=== PATIENT | male | born 1950 | race Caucasian/White ===

== ENCOUNTER 2024-04-14 15:43 | Inpatient (IN) ==
--- NOTE | 2024-04-14 16:28 | Emergency Department Note ---
Impression & Plan Acute pyelonephritis, NAM (acute kidney injury), Fever postop ED Provider Note NAME: DARIA HYMAN AGE: 74 SEX: M : 1950 ARRIVES VIA: Walk-In INFORMANT: Patient, ED PROVIDER(S): Arvind Cheung DO CHIEF COMPLAINT: Fever HPI: The patient is a 74-year-old male who presented to the emergency department for fever. He is status post prostate biopsy which was transrectal as well as a bladder cystoscopy which was positive for bladder cancer. The patient is on Cipro. He did take Cipro this morning. He is also been taking ibuprofen for fever. He took ibuprofen at 2 PM. The patient called his primary urologist and was told to come the emergency department. He noticed a fever as high as 101.5 degrees. He denies having any cough. He denies having any nausea or vomiting. ROS: See above HPI for pertinent positives & negatives. A total of 10 systems reviewed and were otherwise negative. PAST MEDICAL HISTORY: See Below PAST SURGICAL HISTORY: See Below FAMILY HISTORY: See Below SOCIAL HISTORY: See Below HOME MEDICATIONS: See Below ALLERGIES: See Below VITALS: See Below PHYSICAL EXAMINATION: GENERAL: Patient is awake alert in no acute distress patient is resting comfortably and showing no signs of anxiety EYES: The conjunctivae are clear. The pupils are round and reactive. EARS, NOSE, MOUTH AND THROAT: The nose is without any evidence of any deformity. NECK: The neck is nontender and supple. RESPIRATORY: Normal respiratory effort is noted there is no evidence of wheezing rhonchi or rales CARDIOVASCULAR: Tachycardic and regular heart sounds were noted to auscultation. There is no definite murmur. GASTROINTESTINAL: The abdomen is soft. Abdomen is nontender. PELVIS: The Pelvis is stable. No tenderness to palpation is noted. BACK: No midline tenderness or or step-off noted range of motion in flexion extension as well as rotation no signs of muscle spasm noted MUSCULOSKELETAL/EXTREMITIES: There is no evidence of gross deformity full range of motion is noted in the hips and shoulders. SKIN: There is no obvious evidence of any rash. There are no petechiae, pallor or cyanosis noted. NEUROLOGIC: Patient is awake alert and oriented x3 MEDICAL DECISION MAKING: The patient is a 74-year-old male who presented to the emergency department for an evaluation of fever. The patient is status post transrectal biopsy of his prostate but also a cystoscopy for bladder mass. The patient initially was just tachycardic but he started having signs of sepsis with low blood pressure and tachycardia. Patient was treated in the emergency department with IV fluids as well as IV antibiotics. I discussed the patient's laboratory and radiographic studies with him. I discussed his condition with the on-call [facility] hospitalist. I also discussed his case with his primary urologist. The patient is felt to be a better candidate for inpatient management. Triage Nursing notes reviewed. Prior medical records reviewed Vital Signs: reviewed and remarkable for hypotension tachycardia and tachypnea. Differential diagnosis: Viral syndrome, otitis, pharyngitis, pneumonia, influenza, meningitis, urinary tract infection, sepsis, bacteremia, as well as other pathologies. ER treatment provided: See below Diagnostics interpreted by me: ECG: EKG was obtained in the emergency department. My interpretation is sinus tachycardia [address] and T wave abnormalities were noted. Low voltage was noted throughout. There is no ectopy. This was compared to a tracing from March 25, 2024. No changes were noted. Cardiac Monitoring: An order was placed for continuous cardiac monitoring. The monitor shows a rate of 109 bpm with sinus tachycardia. Laboratory studies: As stated above and show below. Imaging studies: See below. Radiographic imaging was reviewed by myself Consultation(s): I discussed this case with Dr. Red who is on-call for the [facility] group. I discussed this case with Dr. Hartmann who is the patient's primary urologist. ED COURSE: Procedures: none Critical Care: I have personally spent greater than 60 minutes of critical care time in the direct management of this patient. This includes bedside care, interpretation of diagnostic studies, and testing, discussion with consultants, patient, and family members, and other required patient management activities. This 60 minutes is in excess of all separately billable procedures. Past Med/Surg History Problem List (Updated 04/14/24 @ 18:06 by Arvind Cheung DO) Fever postop (Acute) NAM (acute kidney injury) (Acute) Acute pyelonephritis (Acute) Complicated UTI (urinary tract infection) Sepsis Encounter for pre-operative examination Medical History Idiopathic polyneuropathy Feet Prostate cancer 10/2019 [place] 6, monitored through PSA Bladder mass Osteoarthritis GERD (gastroesophageal reflux disease) Anxiety Glaucoma Migraine Hypertension Hyperlipidemia Hx of sleep apnea "Resolved" after UPPP Surgical History History of anesthesia reaction Post-op difficulty urinating x 1 episode History of esophagogastroduodenoscopy (EGD) History of revision of total shoulder arthroplasty Right History of total shoulder replacement R/L S/P revision of total knee Left History of total knee replacement R/L History of total hip arthroplasty Left H/O prostate biopsy History of colonoscopy History of tooth extraction History of uvulopalatopharyngoplasty + tonsillectomy Family History Sister Family history of diabetes mellitus Father Family history of diabetes mellitus Other No family history of adverse response to anesthesia Social History Smoking Status: Never smoker Second Hand Exposure: No; Do You Dip or Chew Tobacco: No; Hx Alcohol Use: Yes (remote hx of drinking) Alcohol type: beer Hx Substance Use: No Preferred Language: Austrian Communication Ability: Effective Retirement Plan Counselor Required: No Beliefs That Will Affect Care: None Current Living Situation: Spouse Feels Safe at Home: Yes Assistive Devices: Glasses, Hearing Aid - Bilateral and Other Allergies Allergies Allergy/AdvReac Type Severity Reaction Status Date / Time No Known Allergies Allergy Verified 04/13/24 11:51 Home Meds Home Medications Medication Instructions Recorded Confirmed brimonidine 0.2 % eye drops 1 drp ophthalmic (eye) BID 01/11/22 04/13/24 clonazepam 0.5 mg tablet 0.5 mg PO TID 01/11/22 04/13/24 famotidine 40 mg tablet 40 mg PO QAM 01/11/22 04/13/24 latanoprost 0.005 % eye drops 1 drp ophthalmic (eye) HS 01/11/22 04/13/24 simvastatin 20 mg tablet 10 mg PO QAM 01/11/22 04/13/24 losartan 100 1 tab PO QAM 03/30/24 04/13/24 mg-hydrochlorothiazide 25 mg tablet Previous Rx's Medication Instructions Recorded ciprofloxacin HCl 500 mg tablet 500 mg PO BID #6 tabs 04/13/24 (Cipro) Results & Data (ED) Vital Signs Vital Signs - 24 hr 04/14/24 15:59 04/14/24 16:24 04/14/24 17:00 Temperature 37.5 C 37.0 C Temperature Source Temporal Artery Scan Oral Pulse Rate 124 H 112 H Pulse Rate [Apical] Pulse Rate from SpO2 Sensor Respiratory Rate 18 21 Respiratory Effort / Characteristics Non-Labored Spontaneous Respiratory Depth Normal Blood Pressure 100/55 L Blood Pressure [Left Arm] Blood Pressure Mean 70 Blood Pressure Mean [Left Arm] Pulse Oximetry 94 93 Oxygen Delivery Method Room Air Room Air Sepsis Recent Fever Within 48 Hours No Sepsis New/Unexplained Change in Mental Status No Sepsis Action Taken by Nursing No Action Required 04/14/24 17:00 04/14/24 17:07 04/14/24 17:21 Temperature Temperature Source Pulse Rate 112 H 108 H Pulse Rate [Apical] 110 H Pulse Rate from SpO2 Sensor 108 H Respiratory Rate 23 28 H Respiratory Effort / Characteristics Respiratory Depth Blood Pressure Blood Pressure [Left Arm] 86/58 L Blood Pressure Mean Blood Pressure Mean [Left Arm] 67 Pulse Oximetry 93 93 Oxygen Delivery Method Room Air Room Air Sepsis Recent Fever Within 48 Hours Sepsis New/Unexplained Change in Mental Status Sepsis Action Taken by Nursing 04/14/24 17:36 04/14/24 17:48 Temperature Temperature Source Pulse Rate 108 H 109 H Pulse Rate [Apical] Pulse Rate from SpO2 Sensor 108 H 109 H Respiratory Rate 26 H 32 H Respiratory Effort / Characteristics Respiratory Depth Blood Pressure Blood Pressure [Left Arm] Blood Pressure Mean Blood Pressure Mean [Left Arm] Pulse Oximetry 92 93 Oxygen Delivery Method Room Air Room Air Sepsis Recent Fever Within 48 Hours Sepsis New/Unexplained Change in Mental Status Sepsis Action Taken by Long-Term Medications Current Medication List: was personally reviewed by me Laboratory Data Attestation: I reviewed the patient's lab results. 04/14/24 16:35 04/14/24 16:35 Lab Results 04/14/24 04/14/24 Range/Units 16:25 16:35 WBC 8.59 (4.8-10.8) K/ul RBC 4.51 L (4.70-6.10) M/uL Hgb 13.2 L (14.0-18.0) g/dl Hct 39.4 L (42.0-52.0) % MCV 87.4 (80.0-100.0) fL MCH 29.3 (25.0-34.0) pg MCHC 33.5 (32.0-36.0) g/dL RDW Std Deviation 42.2 (36.4-46.3) fL RDW Coeff of [place] 13.2 (11.5-14.5) % Plt Count 169 (130-400) K/uL MPV 11.4 (9.4-12.4) fL Immature Gran % (Auto) 0.3 % Neut % (Auto) 97.8 % Lymph % (Auto) 0.9 % [place] % (Auto) 0.8 % Eos % (Auto) 0.0 % Baso % (Auto) 0.2 % Neut # (Auto) 8.39 H (1.40-6.50) K/uL Lymph # (Auto) 0.08 L (1.20-3.40) K/uL [place] # (Auto) 0.07 L (0.11-0.59) K/uL Eos # (Auto) 0.00 (0.00-0.50) K/uL Baso # (Auto) 0.02 (0.00-0.20) K/uL Immature Gran # (Auto) 0.03 (0.01-0.20) K/uL PT Cancelled INR Cancelled APTT Cancelled PTT Ratio Cancelled Sodium 133 L (136-145) mmol/L Potassium 3.4 L (3.5-5.1) mmol/L Chloride 97 L (98-107) mmol/L Carbon Dioxide 24 (21-32) mmol/L Anion Gap 12 H (3-11) BUN 38 H (6-23) mg/dl Creatinine 2.54 H (0.6-1.4) mg/dl Est Cr Clr Drug Dosing 29.4 ml/min Est GFR ( Amer) 27.5 ml/min Est GFR (Non-Af Amer) 23.7 ml/min BUN/Creatinine Ratio 15.0 (10-20) Glucose 141 H (70-99(Fasting)) mg/dl Lactate 3.9 H* (0.4-2.0) mmol/L Calcium 9.3 (8.6-10.3) mg/dl Magnesium 1.5 L (1.7-2.4) mg/dl Total Bilirubin 1.4 H (0.2-1.0) mg/dl Direct Bilirubin 0.4 H (0-0.2) mg/dl AST 31 (13-39) U/L ALT 26 (7-52) U/L Alkaline Phosphatase 58 (34-104) U/L Troponin I High Sens 12.3 (0-20) pg/ml Total Protein 6.7 (6.0-8.3) gm/dl Albumin 4.1 (3.4-5.0) gm/dl Procalcitonin 8.77 H (0-0.5) ng/ml Urine Color [place] Urine Appearance Turbid A (Clear) Urine pH 5.0 (4.5-7.5) Ur Specific [place] 1.019 (1.000-1.030) Urine Protein 3+ H (Negative) Urine Glucose (UA) Negative (Negative) Urine Ketones Trace H (Negative) Urine Blood 3+ H (Negative) Urine Nitrite Negative (Negative) Urine Bilirubin Negative (Negative) Urine Urobilinogen Negative (Negative) Ur Leukocyte Esterase 2+ H (Negative) Urine WBC (Auto) >50 H (0-5) /hpf Urine RBC (Auto) >20 H (0-2) /hpf U Hyaline Cast (Auto) 6-10 H (0-2) /lpf U Epithel Cells (Auto) 6-10 H (0-2) /hpf Urine Bacteria (Auto) None Seen (None Seen) Administered Medications Discontinued Medications Sodium Chloride (Nss) 1,000 mls @ 999 mls/hr IV .Q1H1M ONE Stop: 04/14/24 17:21 Last Infusion: 04/14/24 17:38 Dose: Infused Documented By: Admin: 04/14/24 16:37 Dose: 999 mls/hr Documented By: SMITA Sodium Chloride (Nss) 1,000 mls @ 999 mls/hr IV .Q1H1M ONE Stop: 04/14/24 18:02 Last Admin: 04/14/24 17:18 Dose: 999 mls/hr Documented By: SMITA Piperacillin Sod/Tazobactam Sod (Zosyn) 4.5 gm in 100 mls @ 200 mls/hr IV NOW ONE Stop: 04/14/24 17:32 Last Infusion: 04/14/24 17:43 Dose: Infused Documented By: Admin: 04/14/24 17:13 Dose: 200 mls/hr Documented By: SMITA Imaging Data Attestation: I personally reviewed and interpreted this imaging study as follows: My Impression: 1 view chest x-ray was obtained in the emergency department. My interpretation is no free air or definite infiltrate, final report below. CT of the abdomen and pelvis was obtained in the emergency department. My interpretation is no free air or signs of bowel obstruction, final report pending Radiologist's Impression: Chest X-Ray 04/14/24 16:21 XR chest 1V portable CLINICAL HISTORY: Sepsis TECHNIQUE: Single frontal radiograph of the chest was obtained. Comparison: Comparison is made to chest radiograph 03/25/2024 FINDINGS: Bilateral shoulder arthroplasties are seen. Cardiomegaly is noted. The lungs are clear. No evidence of pleural effusion or pneumothorax. IMPRESSION: No acute chest disease. ACT 112: Negative or not required by law. Electronically signed by: Matt José M.D. 04/14/2024 5:03 PM Discharge Plan Visit Data Chief Complaint: Fever Stated Complaint: FEVER, POST SURG ED Provider: Arvind Cheung Discharge Problem: Acute pyelonephritis, NAM (acute kidney injury), Fever postop Patient Disposition: Being Evaluated by Hospitalist Forms Stand Alone Forms: My [facility] Prescriptions Prescriptions: No Action famotidine 40 mg Tablet 40 mg PO QAM clonazepam 0.5 mg Tablet 0.5 mg PO TID simvastatin 20 mg Tablet 10 mg PO QAM latanoprost 0.005 % Drops 1 drp OPHTHALMIC (EYE) HS brimonidine 0.2 % Drops 1 drp OPHTHALMIC (EYE) BID losartan-hydrochlorothiazide 100-25 mg Tablet 1 tab PO QAM ciprofloxacin HCl [Cipro] 500 mg tablet 500 mg PO BID Qty: 6 0RF Referrals Referrals: Joanna Woods M.D. [Primary Care Provider] -
[2024-04-14] MEDS: SODIUM CHLORIDE 0.9% 1,000 ML IV ONE ×2 (16:37→17:18)
--- NOTE | 2024-04-14 17:05 | XRay Report ---
XR chest 1V portable CLINICAL HISTORY: Sepsis TECHNIQUE: Single frontal radiograph of the chest was obtained. Comparison: Comparison is made to chest radiograph 03/25/2024 FINDINGS: Bilateral shoulder arthroplasties are seen. Cardiomegaly is noted. The lungs are clear. No evidence o f pleural effusion or pneumothorax. IMPRESSION: No acute chest disease. ACT 112: Negative or not required by law. Electronically signed by: Matt José M.D. 04/14/2024 5:03 PM
[2024-04-14 17:12] LABS: Hematocrit (blood only) 39.4 % (42.0-52.0); Hemoglobin 13.2 g/dl (14.0-18.0); Mean Corpuscular Hemoglobin 29.3 pg (25.0-34.0); Mean Corpuscular Hgb Conc 33.5 g/dL (32.0-36.0); Mean Corpuscular Volume 87.4 fL (80.0-100.0); Mean Platelet Volume 11.4 fL (9.4-12.4); Platelet Count 169 K/uL (130-400); RDW Coefficient of Variation 13.2 % (11.5-14.5); RDW Standard Deviation 42.2 fL (36.4-46.3); Red Blood Count 4.51 M/uL (4.70-6.10); White Blood Count 8.59 K/ul (4.8-10.8)
[2024-04-14] MEDS: PIPERACILLIN/TAZOBACTAM 4.5 GM/100 ML BAG IV ONE (17:13)
[2024-04-14 17:22] LABS: Appearance Urine Turbid (Clear); Bacteria Urine Automated None Seen (None Seen); Bilirubin Urine Negative (Negative); Blood Urine 3+ (Negative); Color Urine Orange; Glucose Urine UA Negative (Negative); Ketones Urine Trace (Negative); Leukocyte Esterase Urine 2+ (Negative); Nitrite Urine Negative (Negative); Protein Urine 3+ (Negative); RBC Urine Automated >20 /hpf (0-2); Specific Gravity Urine 1.019 (1.000-1.030); Urobilinogen Urine Negative (Negative); WBC Urine Automated >50 /hpf (0-5)
[2024-04-14 17:26] LABS: Albumin Level 4.1 gm/dl (3.4-5.0); Bilirubin Direct 0.4 mg/dl (0-0.2); Bilirubin,Total 1.4 mg/dl (0.2-1.0); Calcium 9.3 mg/dl (8.6-10.3); Creatinine Clr Calc Pharmacy 29.4 ml/min; Est GFR (African American) 27.5 ml/min; Est GFR (Non-African American) 23.7 ml/min; Magnesium 1.5 mg/dl (1.7-2.4); Potassium 3.4 mmol/L (3.5-5.1); Total Protein 6.7 gm/dl (6.0-8.3)
[2024-04-14 17:31] LABS: Troponin I High Sensitivity 12.3 pg/ml (0-20)
[2024-04-14 17:33] LABS: Basophils # (auto) 0.02 K/uL (0.00-0.20); Basophils % (auto) 0.2 %; Immature Granulocytes # (auto) 0.03 K/uL (0.01-0.20); Immature Granulocytes % (auto) 0.3 %; Lymphocytes # (auto) 0.08 K/uL (1.20-3.40); Lymphocytes % (auto) 0.9 %; Monocytes # (auto) 0.07 K/uL (0.11-0.59); Monocytes % (auto) 0.8 %; Neutrophils # (auto) 8.39 K/uL (1.40-6.50); Neutrophils % (auto) 97.8 %
--- NOTE | 2024-04-14 17:38 | History & Physical Report ---
Date of Service April 14, 2024 Assessment & Plan (1) Sepsis: Plan: Sepsis, suspect source post TURBT UA infected appearing, UCx pending Blood cultures pending Lactate elevated at 3.9. Hypotensive in the ER Sepsis 30cc/kg dosing 3126 cc, IBW 2100 cc. Has been ordered 2500cc of bolus in the ER to meet IBW goals. No prior history of CAD/heart failure. chest x- ray is without acute findings, no evidence of edema. Fluid resuscitation completed to ABW goal completed with 750cc LR Lactate repeat pending Procalcitonin 8.77. Continue Zosyn No history of resistant infections No history of chronic prednisone use/adrenal insufficiency EKG sinus tachycardia without territorial ST segment changes. No chest pain. High sensitive troponin is normal. - CT-A/P:1. Mild wall thickening of the anorectal junction with adjacent inflammatory stranding may represent a nonspecific proctitis. Findings should be correlated with colonoscopy. 2. No bowel obstruction or pneumoperitoneum. 3. Colonic diverticulosis. 4. 19 cm intramuscular lipoma of the left lateral abdominal wall. If stable can have GI consultation for inpatient versus outpatient colonoscopy depending on clinical progression (2) Complicated UTI (urinary tract infection): Plan: tx as noted (3) Prostate cancer: Plan: Bladder lesion/prostate cancer Bladder mass concerning for potential transitional cell carcinoma. Also has a history of prostate cancer [place] 3+3 in 2018, TURBT was performed for confirmation biopsy of prostate cancer at the same time of bladder tumor sampling Surgical specimen from biopsy remain pending (4) Bladder mass: Plan: as noted (5) Hypertension: Plan: Hypertension Losartan held for hypotension (6) NAM (acute kidney injury): Plan: NAM - baseline Cr ~1.5, acutely elevated at 2.54 with volume contraction and sepsis. Trend daily. No hyperkalemia or volume overload on admit. - IVFM as noted - Renally dose medications (7) Hematuria: Plan: MIld Acute Blood Loss anemia 2/2 bx bleeding - Hgb baseline ~15 --> 13.2 - Hematuria improving on reassessment, last void was clear. - No chest pain/syncope/presyncope - Type and screen ordered - Consent signed - No indication for acute transfusion at time of assessment Plan Chronic Stable Issues: - Chronic pain: Meloxicam temporarily held, hydrocodone 02384 temporarily converted to oxycodone while admitted. Hold for narcosis - GERD: No longer on Protonix however we will continue Pepcid prophylaxis/GERD prophylaxis while inpatient. - Hyperlipidemia: Continue statin DVT: SCDs Dispo: PCU CODE: FUll DIet: Regular History of Present Illness Primary Care Provider: Joanna Woods Los is a 74-year-old male with past medical history of prostate cancer and bladder tumor s/p TURBT and bladder tumor biopsy 04/13/2024, hypertension, GERD, hyperlipidemia who presents to the ER post prostate TURBT with fever of 101.5 and hypotension. Patient is recommended for admission for suspected sepsis of origin. While in the ER BP 100/55, repeat 86/58. There is no leukocytosis. Lactate is elevated at 3.9. Magnesium is low at 1.5. No transaminitis. UA is infected appearing. Patient had been on ciprofloxacin postprocedure. +Fever and shaking chills 10am today. Took 3x 200mg ibuprofen for fever which seemed to help. Took cipro last night, this morning, and this afternoon. 'horrendous' burning with urination since lat night, seems a little bit better than last night but still very bothersome. Hematuria last night this morning with lizeth blood however this seems that it may be improving as his last void was relatively clear without blood. Did pass some small clots last night none with his last Has some suprapubic pain otherwise denies abdominal pain No chest pain, chest pressure, shortness of breath, dyspnea Denies history of heart failure does not take aspirin/antiplatelet/anticoagulant agents Medical History: Reviewed Medications: Reviewed Surgical History: Reviewed Family history: Reviewed Allergies: Reviewed Social History: Reviewed Code Status: Full code Allergies Allergy/AdvReac Type Severity Reaction Status Date / Time No Known Allergies Allergy Verified 04/13/24 11:51 Home Medications Medication Instructions Recorded Confirmed Type brimonidine 0.2 % eye drops 1 drp ophthalmic (eye) BID 01/11/22 04/14/24 History clonazepam 0.5 mg tablet 0.5 mg PO TID 01/11/22 04/14/24 History famotidine 40 mg tablet 40 mg PO QAM 01/11/22 04/14/24 History latanoprost 0.005 % eye drops 1 drp ophthalmic (eye) HS 01/11/22 04/14/24 History simvastatin 20 mg tablet 10 mg PO QAM 01/11/22 04/14/24 History losartan 100 1 tab PO QAM 03/30/24 04/14/24 History mg-hydrochlorothiazide 25 mg tablet ciprofloxacin HCl 500 mg tablet 500 mg PO BID #6 tabs 04/13/24 04/14/24 Rx (Cipro) Past Med/Surg History Problem List (Updated 04/14/24 @ 18:44 by Donnell Gottlieb MD) Hematuria Fever postop (Acute) NAM (acute kidney injury) (Acute) Acute pyelonephritis (Acute) Complicated UTI (urinary tract infection) Sepsis Encounter for pre-operative examination Medical History Idiopathic polyneuropathy Feet Prostate cancer 10/2019 [place] 6, monitored through PSA Bladder mass Osteoarthritis GERD (gastroesophageal reflux disease) Anxiety Glaucoma Migraine Hypertension Hyperlipidemia Hx of sleep apnea "Resolved" after UPPP Surgical History History of anesthesia reaction Post-op difficulty urinating x 1 episode History of esophagogastroduodenoscopy (EGD) History of revision of total shoulder arthroplasty Right History of total shoulder replacement R/L S/P revision of total knee Left History of total knee replacement R/L History of total hip arthroplasty Left H/O prostate biopsy History of colonoscopy History of tooth extraction History of uvulopalatopharyngoplasty + tonsillectomy Family History Sister Family history of diabetes mellitus Father Family history of diabetes mellitus Other No family history of adverse response to anesthesia Social History Smoking Status: Never smoker Second Hand Exposure: No; Do You Dip or Chew Tobacco: No; Hx Alcohol Use: Yes (remote hx of drinking) Alcohol type: beer Hx Substance Use: No Preferred Language: Kyrgyz Communication Ability: Effective Washroom Operator Required: No Beliefs That Will Affect Care: None Current Living Situation: Spouse Feels Safe at Home: Yes Assistive Devices: Glasses, Hearing Aid - Bilateral and Other Physical Exam Physical Exam: General: A&Ox3. NAD. Cooperative. Appears nontoxic, pleasant, cooperative and conversational HEENT: Atraumatic, normocephalic. vision/hearing intact Pulm: CTAB A&P. -wheezes, -rales, -rhonchi. Symmetrical chest rise. No increased work of breathing. No respiratory distress. Cardiac: RRR, -mrg. Radial pulses intact and symmetrical. Abdominal:suprapubic ttp. No rebound/guarding. soft. BS present. Ext: warm, dry Results & Data Results & Data Vital Signs (Past 12 Hours) Vital Signs Temp Pulse Pulse Resp BP BP Pulse Ox 04/14/24 17:07 112 H 04/14/24 17:00 110 H 23 86/58 L 93 04/14/24 17:00 112 H 21 93 04/14/24 16:24 37.0 C 04/14/24 15:59 37.5 C 124 H 18 100/55 L 94 O2 Del Method 04/14/24 17:07 04/14/24 17:00 Room Air 04/14/24 17:00 Room Air 04/14/24 16:24 04/14/24 15:59 Room Air PG Care Time/CCT Total # of Minutes Spent Total Time Spent with Patient: Total time spent is greater than 50% in coordination of care (as documented) at patient's floor/unit and/or counseling patient: Coding Level of Care Code 74069 INT INP/OBS CARE 3/75MIN Diagnoses Sepsis A41.9 Complicated UTI (urinary tract infection) N39.0 Prostate cancer C61 Bladder mass N32.89 Hypertension I10 NAM (acute kidney injury) N17.9 Hematuria R31.9
--- NOTE | 2024-04-14 18:30 | CT Scan Report ---
ABDOMEN AND PELVIS CT WITHOUT CONTRAST CT DOSE: 1511.35 mGy.cm HISTORY: Acute generalized abdominal pain with fever fever TECHNIQUE: Multiaxial CT images of the abdomen and pelvis were performed without contrast. A dose lo wering technique was utilized adhering to the principles of ALARA. COMPARISON STUDY: None. FINDINGS: Gynecomastia. Left hemidiaphragmatic elevation. Moderate coronary artery calcifications. Mi ld left basilar subsegmental atelectasis. There is no free air. The unenhanced spleen, pancreas, gall bladder and adrenal glands are unremarkable. There are a few scattered hypodense foci throughout the liver suggestive of probable cysts. Left lateral abdominal wall intramuscular lipoma measures 13 x 5 x 19 cm. Nonspecific bilateral perin ephric stranding. There are a few cysts of the kidneys measuring up to 2.7 cm on the left. No renal o r ureteral calculi or hydronephrosis. Prostatomegaly. Urinary bladder wall thickening with partial di stention. There is a locule of intraluminal air within the bladder lumen. No abdominal aortic aneurys m. Mild nonspecific wall thickening of the anal rectal junction with adjacent inflammatory stranding, properly evaluated secondary to streak artifact from the left hip arthroplasty. Colonic diverticulos is. Normal appendix. Tiny fat filled umbilical hernia. No acute fracture. 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 IMPRESSION: 1. Mild wall thickening of the anorectal junction with adjacent inflammatory stranding may represent a nonspecific proctitis. Findings should be correlated with colonoscopy. 2. No bowel obstruction or pneumoperitoneum. 3. Colonic diverticulosis. 4. 19 cm intramuscular lipoma of the left lateral abdominal wall. ACT 112: Negative or not required by law. The above report was generated using voice recognition software. It may contain grammatical, syntax o r spelling errors. Electronically signed by: Patrick Lux M.D. 04/14/2024 6:28 PM
[2024-04-14 19:22] LABS: INR 1.1 (0.9-1.1); Partial Thromboplastin Time 26 Seconds (21-31); Prothrombin Time 11.9 Seconds (9.0-12.0)
[2024-04-14] MEDS: SODIUM CHLORIDE 0.9% 500 ML IV ONE (19:41)
[2024-04-14] MEDS: LACTATED RINGER'S 500 ML IV ONE (21:40)
[2024-04-14] MEDS: LACTATED RINGER'S 250 ML IV ONE (21:40)
[2024-04-14] MEDS: POTASSIUM CHLORIDE CRTAB 20 MEQ TABCR PO STA (21:40)
[2024-04-14] MEDS: ACETAMINOPHEN 325 MG TAB PO PRN (21:41)
[2024-04-14] MEDS: MAGNESIUM SULFATE / D5W 1 GM/100 ML BAG IV ONE (21:41)
[2024-04-14] MEDS: MAGNESIUM OXIDE 400 MG TAB PO SCH (21:45)
[2024-04-14] MEDS: LATANOPROST 0.005% OP SOLN 2.5 ML BTL OP SCH (21:45)
[2024-04-14] MEDS: PIPERACILLIN/TAZOBACTAM 4.5 GM in DEXTROSE 5% MINI-B 100 ML IV SCH (22:38)
[2024-04-14 22:54] LABS: Hematocrit (blood only) 38.1 % (42.0-52.0); Hemoglobin 12.7 g/dl (14.0-18.0)
[2024-04-15] MEDS: LACTATED RINGER'S 1,000 ML IV ONE (00:15)
[2024-04-15 03:47] LABS: A calco-baum cmplx NotReported Not Detected (NotDetected); Bact fragilis Not Reported Not Detected (NotDetected); Blood Culture Id Panel See PCR Comment (NotDetected); C auris Not Reported Not Detected (NotDetected); CTX-M Resistant Gene Not Detected (NotDetected); Calbicans Not Reported Not Detected (NotDetected); Candida glabrata Not Reported Not Detected (NotDetected); Candida krusei Not Reported Not Detected (NotDetected); Cneoformans/gatti Not Reported Not Detected (NotDetected); Cparapsilosis Not Reported Not Detected (NotDetected); E cloacae compx Not Reported Not Detected (NotDetected); Efaecalis Not Reported Not Detected (NotDetected); Efaecium Not Reported Not Detected (NotDetected); Enterobacterales DETECTED (NotDetected); Enterobacterales Not Reported DETECTED (NotDetected); Escherichia coli Not Reported DETECTED (NotDetected); H influenzae Not Reported Not Detected (NotDetected); IMP Resistant Gene Not Detected (NotDetected); K aerogenes Not Reported Not Detected (NotDetected); KPC Resistant Gene Not Detected (NotDetected); Koxytoca Not Reported Not Detected (NotDetected); Kpneumoniae grp Not Reported Not Detected (NotDetected); Lmonocyt Not Reported Not Detected (NotDetected); N meningitidis Not Reported Not Detected (NotDetected); NDM Resistant Gene Not Detected (NotDetected); OXA 48 Like Resistant Gene Not Detected (NotDetected); P aeruginosa Not Reported Not Detected (NotDetected); Proteus spp Not Reported Not Detected (NotDetected); Salmonella spp Not Reported Not Detected (NotDetected); Smarcescens Not Reported Not Detected (NotDetected); Staph lugdunensis Not Reported Not Detected (NotDetected); Staph spp. Not Reported Not Detected (NotDetected); Staphaureus Not Reported Not Detected (NotDetected); Staphepi Not Reported Not Detected (NotDetected); Stenmaltophilia Not Reported Not Detected (NotDetected); Strep agal(GrpB) Not Reported Not Detected (NotDetected); Strep pneum Not Reported Not Detected (NotDetected); Strep pyog (GrpA) Not Reported Not Detected (NotDetected); Strep spp Not Reported Not Detected (NotDetected); VIM Resistant Gene Not Detected (NotDetected); mcr-1 Colistin Resistant Gene Not Detected (NotDetected)
[2024-04-15 06:43] LABS: Hematocrit (blood only) 37.8 % (42.0-52.0); Hemoglobin 12.6 g/dl (14.0-18.0); Mean Corpuscular Hemoglobin 29.4 pg (25.0-34.0); Mean Corpuscular Hgb Conc 33.3 g/dL (32.0-36.0); Mean Corpuscular Volume 88.3 fL (80.0-100.0); Mean Platelet Volume 11.7 fL (9.4-12.4); Platelet Count 142 K/uL (130-400); RDW Coefficient of Variation 13.5 % (11.5-14.5); RDW Standard Deviation 43.8 fL (36.4-46.3); Red Blood Count 4.28 M/uL (4.70-6.10); White Blood Count 8.57 K/ul (4.8-10.8)
[2024-04-15 06:56] LABS: BUN Creatinine Ratio 14.4 (10-20); Calcium 8.5 mg/dl (8.6-10.3); Est GFR (African American) 28.1 ml/min; Est GFR (Non-African American) 24.2 ml/min; Potassium 4.7 mmol/L (3.5-5.1)
[2024-04-15 07:01] LABS: Basophils # (auto) 0.02 K/uL (0.00-0.20); Basophils % (auto) 0.2 %; Immature Granulocytes # (auto) 0.05 K/uL (0.01-0.20); Immature Granulocytes % (auto) 0.6 %; Lymphocytes # (auto) 0.08 K/uL (1.20-3.40); Lymphocytes % (auto) 0.9 %; Monocytes # (auto) 0.12 K/uL (0.11-0.59); Monocytes % (auto) 1.4 %; Neutrophils % (auto) 96.9 %; Toxic Vacuolation 2+
--- NOTE | 2024-04-15 07:54 | Urology Consultation ---
Date of Consultation April 15, 2024 Assessment & Plan (1) Fever postop: (2) Complicated UTI (urinary tract infection): (3) Sepsis: Plan 74-year-old male admitted for NAM, fever and sepsis after recent urologic procedure. Patient is s/p TURBT and prostate biopsy on 04/13/24 Tmax 38.3 at 0120, afebrile this am Lab work reviewedcreatinine 2.50, no leukocytosis Blood culture showing gram-negative bacilli Urine culture prelim with no growth Subjectively feeling better since arrival Continue broad-spectrum antibiotics and narrow per sensitivity data when available Voiding spontaneously, continue to monitor and bladder scan as needed No acute intervention Continue supportive care, antibiotics and medical management per hospital medicine will follow peripherally, please contact our service with any additional questions or concerns History of Present Illness Attending Physician: Jaswinder Mabry MD History of Present Illness This is a 74-year-old male with past medical history of prostate cancer and bladder tumor status post TURBT and prostate biopsy on 04/13/2024 who presented to the emergency department on 04/14/24 for evaluation of fever. On arrival, he was afebrile, tachycardic and hypotensive. He reported fever of 101.5 at home. Lab work showed sodium 133, potassium 3.4, creatinine 2.54, WBC 8.59, hemoglobin 13.2. Lactate 3.9. Urinalysis showed turbid urine, 3+ protein, 3+ blood, 2+ LE, >50 WBC, >20 RBC, negative for bacteria. Urine and blood cultures collected. CT abdomen pelvis showed urinary bladder wall thicke olivia with partial distention, intraluminal air within the bladder lumen, and mild nonspecific wall thickening of the anal rectal junction with adjacent inflammatory stranding. He was treated with IV fluids and Zosyn in the emergency department. He was admitted to the hospital medicine service for NAM, complicated UTI and sepsis. Urology is consulted for postoperative fever, pyelonephritis. Labs todaycreatinine 2.50, WBC 8.57, hemoglobin 12.6. Blood cultures showing gram-negative bacilli, urine culture prelim no growth. On IV Zosyn. Tmax 38.3 (04/15 @0120). Patient seen and examined at bedside this morning. He is awake and resting in bed. He reports he feels better since arrival. He is voiding spontaneously, dysuria improved. Hematuria has cleared post procedure. Denies nausea, vomiting, fever or chills at present. Allergies Allergy/AdvReac Type Severity Reaction Status Date / Time No Known Allergies Allergy Verified 04/13/24 11:51 Home Medications Medication Instructions Recorded Confirmed Type brimonidine 0.2 % eye drops 1 drp ophthalmic (eye) BID 01/11/22 04/14/24 History clonazepam 0.5 mg tablet 0.5 mg PO TID 01/11/22 04/14/24 History famotidine 40 mg tablet 40 mg PO QAM 01/11/22 04/14/24 History latanoprost 0.005 % eye drops 1 drp ophthalmic (eye) HS 01/11/22 04/14/24 History simvastatin 20 mg tablet 10 mg PO QAM 01/11/22 04/14/24 History losartan 100 1 tab PO QAM 03/30/24 04/14/24 History mg-hydrochlorothiazide 25 mg tablet ciprofloxacin HCl 500 mg tablet 500 mg PO BID #6 tabs 04/13/24 04/14/24 Rx (Cipro) Patient History Medical History Idiopathic polyneuropathy Feet Prostate cancer 10/2019 Nataliia 6, monitored through PSA Bladder mass Osteoarthritis GERD (gastroesophageal reflux disease) Anxiety Glaucoma Migraine Hypertension Hyperlipidemia Hx of sleep apnea "Resolved" after UPPP Surgical History History of anesthesia reaction Post-op difficulty urinating x 1 episode History of esophagogastroduodenoscopy (EGD) History of revision of total shoulder arthroplasty Right History of total shoulder replacement R/L S/P revision of total knee Left History of total knee replacement R/L History of total hip arthroplasty Left H/O prostate biopsy History of colonoscopy History of tooth extraction History of uvulopalatopharyngoplasty + tonsillectomy Family History Sister Family history of diabetes mellitus Father Family history of diabetes mellitus Other No family history of adverse response to anesthesia Social History Smoking Status: Never smoker Second Hand Exposure: No; Do You Dip or Chew Tobacco: No; Hx Alcohol Use: No Hx Substance Use: No Preferred Language: Bulgarian Communication Ability: Effective Still Operator Batch Or Continuous Required: No Beliefs That Will Affect Care: None Current Living Situation: Spouse Other Information That Helps Us Care for You: No Feels Safe at Home: Yes Safety Concerns: Feels Safe At This Time Assistive Devices: None Assistive Devices Comment: false tooth implant Review of Systems Review of Systems: All systems reviewed & are unremarkable except as noted in HPI & below Physical Exam Constitutional: no acute distress Respiratory: normal respiratory effort; no respiratory distress and no labored breathing Gastrointestinal (Abdomen): Inspection/Auscultation: abdomen normal to inspection Musculoskeletal: Head/Neck/Chest: normocephalic Neurologic: moves all extremities and awake Psychiatric: Orientation: alert and oriented x 3 Results & Data Vital Signs (Past 12 Hours) Vital Signs Temp Pulse Pulse Resp BP Pulse Ox O2 Del Method 04/15/24 07:14 37.1 C 103 H 18 130/81 91 Room Air 04/15/24 04:39 37.1 C 98 H 18 108/68 96 Room Air 04/15/24 01:20 38.3 C H 04/14/24 22:51 37.4 C 103 H 18 111/70 91 Room Air 04/14/24 22:00 109 H 04/14/24 21:16 122 H 04/14/24 20:45 37.8 C H 122 H 16 108/72 93 Room Air 04/14/24 20:25 37.2 C 04/14/24 20:21 122 H 29 H 93 04/14/24 20:06 95 PG Care Time/CCT Total # of Minutes Spent Total Time Spent with Patient: Total time spent is greater than 50% in coordination of care (as documented) at patient's floor/unit and/or counseling patient: Coding Level of Care Code 53374 INT INP/OBS CARE 2/55MIN Diagnoses Fever postop R50.82 Complicated UTI (urinary tract infection) N39.0 Sepsis A41.9
[2024-04-15] MEDS: FAMOTIDINE 40 MG TABLET PO SCH (08:55)
--- NOTE | 2024-04-15 10:03 | Electrocardiogram Report ---
Test Reason : Blood Pressure : / mmHG Vent. Rate : 118 BPM Atrial Rate : 118 BPM P-R Int : 116 ms QRS Dur : 082 ms QT Int : 332 ms P-R-T Axes : 043 012 007 degrees QTc Int : 465 ms Sinus tachycardia Low voltage QRS Inferior infarct , age undetermined Poor R wave progression, consider anterior SC vs. lead placement vs. LVH Abnormal ECG When compared with ECG of 25-MAR-2024 13:05, Vent. rate has increased BY 41 BPM Nonspecific T wave abnormality now evident in Inferior leads Nonspecific T wave abnormality, worse in Lateral leads Confirmed by Arvind Hicks ([id number]) on 04/15/2024 10:03:14 AM Referred By: REFERRED SELF Confirmed By:Arvind Hicks
[2024-04-15] MEDS: clonazePAM 0.5 MG TAB PO SCH (14:46)
--- NOTE | 2024-04-15 18:17 | Hospitalist Progress Note ---
Date of Service April 15, 2024 Assessment & Plan (1) Sepsis: Plan: Sepsis, suspect sourc, s/p TURBT 04/13 Hypotensive, febrile, with elevated lactate at 3.9 and procalcitonin 8.77 on presentation to ED. EKG on admission revealed sinus tachycardia without territorial ST segment changes. No chest pain. High sensitive troponin was normal. CXR on admission without acute findings, no evidence of edema. Fluid resuscitation completed to ABW goal completed with 750cc LR. CT A/P on admission suspicious for nonspecific proctitis. Recommend follow-up colonoscopy outpatient. UA infected appearing, UCx preliminary negative. Repeat urine culture pending. Blood cultures preliminary positive gram-negative bacilli. Continue Zosyn. Narrow antibiotics per sensitivity data when resulted. No history of resistant infections No history of chronic prednisone use/adrenal insufficiency (2) Prostate cancer: Plan: Bladder lesion/prostate cancer Bladder mass concerning for potential transitional cell carcinoma. Also has a history of prostate cancer Nataliia 3+3 in 2018, TURBT was performed for confirmation biopsy of prostate cancer at the same time of bladder tumor sampling Surgical specimen from biopsy remain pending (3) NAM (acute kidney injury): Plan: NAM - Baseline Cr ~1.5, acutely elevated at 2.54 with volume contraction and sepsis. Trend daily. No hyperkalemia or volume overload on admit. - Renally dose medications (4) Hematuria: Plan: Mild Acute Blood Loss anemia 2/2 bx bleeding - Hgb baseline ~15 --> 13.2 - Hematuria improving on reassessment, last void was clear. - No chest pain/syncope/presyncope - Type and screen ordered - Consent signed - No indication for acute transfusion at time of assessment (5) Hypertension: Plan: Hypertension Losartan held for hypotension Plan Resumed simvastatin, eyedrops, Klonopin Ordered repeat blood cultures for tomorrow morning Reviewed urology note Chronic Stable Issues: - Chronic pain: Meloxicam temporarily held, hydrocodone [id number] temporarily converted to oxycodone while admitted. Hold for narcosis - GERD: No longer on Protonix however we will continue Pepcid prophylaxis/GERD prophylaxis while inpatient. - Hyperlipidemia: Continue statin DVT: SCDs CODE STATUS: Full code Admission and Anticipated Discharge Date Admission Date: April 14, 2024 Subjective Patient seen and evaluated at bedside. He reports that he has been experiencing some loose stools today most likely due to his antibiotic. He reports that he is feeling better overall today. His dysuria has improved, hematuria has resolved. He denies fever, chills, nausea, vomiting, abdominal pain, shortness of breath, difficulty breathing, chest pain. Physical Exam Physical Exam: General: No acute distress, nondiaphoretic, well-developed, well-nourished. Skin: The skin was without rashes, erythema, edema, or bruising. Cardiac: Regular rate and rhythm without murmurs gallops or rubs. Pulm: Clear to auscultation bilaterally without wheezes, rales or rhonchi. No respiratory distress. Abdominal: Positive bowel sounds x 4. Soft, nontender, without masses or organomegaly. No guarding or rebound tenderness. Neuro: A&O x3. No focal neurological deficits. Results & Data Results & Data Vital Signs (Past 12 Hours) Vital Signs Temp Pulse Resp BP Pulse Ox O2 Del Method 04/15/24 15:24 37.3 C 102 H 18 135/91 93 Room Air 04/15/24 11:00 37.3 C 100 H 18 101/69 91 Room Air 04/15/24 07:14 37.1 C 103 H 18 130/81 91 Room Air Laboratory Results Reviewed CBC Reviewed coags Reviewed CMP PG Care Time/CCT Total # of Minutes Spent Total Time Spent with Patient: Total time spent is greater than 50% in coordination of care (as documented) at patient's floor/unit and/or counseling patient: Coding Level of Care Code 81536 SUB INP/OBS CARE 3/50MIN Diagnoses Sepsis A41.9 Prostate cancer C61 NAM (acute kidney injury) N17.9 Hematuria R31.9 Hypertension I10
[2024-04-15] MEDS: BRIMONIDINE TARTRATE 0.2% 5ML OP SCH (20:39)
[2024-04-15] MEDS ORDERED: Nursing to Pharmacy Communication SCH (22:00)
[2024-04-16] MEDS: BRIMONIDINE TARTRATE 0.2% 5ML OP SCH (06:01)
[2024-04-16 06:41] LABS: Hematocrit (blood only) 38.1 % (42.0-52.0); Hemoglobin 12.8 g/dl (14.0-18.0); Mean Corpuscular Hemoglobin 29.3 pg (25.0-34.0); Mean Corpuscular Hgb Conc 33.6 g/dL (32.0-36.0); Mean Corpuscular Volume 87.2 fL (80.0-100.0); Mean Platelet Volume 11.9 fL (9.4-12.4); Platelet Count 103 K/uL (130-400); RDW Coefficient of Variation 13.7 % (11.5-14.5); RDW Standard Deviation 43.6 fL (36.4-46.3); Red Blood Count 4.37 M/uL (4.70-6.10); White Blood Count 5.23 K/ul (4.8-10.8)
[2024-04-16 06:48] LABS: BUN Creatinine Ratio 14.1 (10-20); Est GFR (African American) 31.5 ml/min; Est GFR (Non-African American) 27.2 ml/min
[2024-04-16 07:05] LABS: Basophils # (auto) 0.04 K/uL (0.00-0.20); Basophils % (auto) 0.8 %; Dohle Bodies 1+; Eosinophils # (auto) 0.02 K/uL (0.00-0.50); Eosinophils % (auto) 0.4 %; Immature Granulocytes # (auto) 0.05 K/uL (0.01-0.20); Lymphocytes # (auto) 0.27 K/uL (1.20-3.40); Lymphocytes % (auto) 5.2 %; Monocytes # (auto) 0.16 K/uL (0.11-0.59); Monocytes % (auto) 3.1 %; Neutrophils # (auto) 4.69 K/uL (1.40-6.50); Neutrophils % (auto) 89.5 %
[2024-04-16] MEDS: SIMVASTATIN 10 MG TAB PO SCH (08:30)
[2024-04-16] MEDS: cefTRIAXone SODIUM 2,000 MG/50 ML BAG IV SCH (15:06)
--- NOTE | 2024-04-16 15:07 | Hospitalist Progress Note ---
Date of Service April 16, 2024 Assessment & Plan (1) Sepsis: Plan: Sepsis, suspect sourc, s/p TURBT 04/13 Hypotensive, febrile, with elevated lactate at 3.9 and procalcitonin 8.77 on presentation to ED. EKG on admission revealed sinus tachycardia without territorial ST segment changes. No chest pain. High sensitive troponin was normal. CXR on admission without acute findings, no evidence of edema. Fluid resuscitation completed to ABW goal completed with 750cc LR. CT A/P on admission suspicious for nonspecific proctitis. Recommend follow-up colonoscopy outpatient. UA infected appearing, UCx negative. Blood cultures preliminary positive gram-negative bacilli. Repeat blood cultures pending results. Transitioned to ceftriaxone from Zosyn 04/16. Continue to transition to oral antibiotic per sensitivity data when resulted. No history of resistant infections or chronic prednisone use/adrenal insufficiency. Based on organism, source of infection, and no catheters/stents/etc. patient requires 7 days total duration of antibiotic therapy. Patient has been experiencing loose stools since 04/15/2024. > Stool cultures and C. difficile negative. > Loose stools most likely due to antibiotic. (2) Prostate cancer: Plan: Bladder lesion/prostate cancer Bladder mass concerning for potential transitional cell carcinoma. Also has a history of prostate cancer Nataliia 3+3 in 2018, TURBT was performed for confirmation biopsy of prostate cancer at the same time of bladder tumor sampling Surgical specimen from biopsy remain pending (3) NAM (acute kidney injury): Plan: - Baseline Cr ~1.5, acutely elevated at 2.54 with volume contraction and sepsis on admission. Trend daily. No hyperkalemia or volume overload on admit. - Renally dose medications - NAM improving 04/16/24. (4) Hematuria: Plan: Mild Acute Blood Loss anemia 2/2 bx bleeding - Hgb baseline ~15 --> 13.2 - Hematuria improving on reassessment, last void was clear. - No chest pain/syncope/presyncope - Type and screen ordered - Consent signed - No indication for acute transfusion at time of assessment (5) Hypertension: Plan: Losartan held for hypotension Plan Discussed antibiotic stewardship with pharmacy Updated at bedside Ordered stool cultures and C. difficile toxin Chronic Stable Issues: - Chronic pain: Meloxicam temporarily held, hydrocodone [id number] temporarily converted to oxycodone while admitted. Hold for narcosis - GERD: No longer on Protonix however we will continue Pepcid prophylaxis/GERD prophylaxis while inpatient. - Hyperlipidemia: Continue statin DVT: SCDs CODE STATUS: Full code Admission and Anticipated Discharge Date Admission Date: April 14, 2024 Subjective Patient seen and evaluated at bedside. He reports that he continues to feel better today. He is still having some loose stools; stool culture and C. difficile toxin negative. Patient reports that his appetite has been less than his normal, which he attributes to being sick and being stressed about his hospitalization. He denies any nausea, vomiting, fever, chills, shortness of breath, chest pain. No additional complaints at this time. Physical Exam Physical Exam: General: No acute distress, nondiaphoretic, well-developed, well-nourished. Skin: The skin was without rashes, erythema, edema, or bruising. Cardiac: Regular rate and rhythm without murmurs gallops or rubs. Pulm: Clear to auscultation bilaterally without wheezes, rales or rhonchi. No respiratory distress. Abdominal: Positive bowel sounds x 4. Soft, nontender, without masses or organomegaly. No guarding or rebound tenderness. Neuro: A&O x3. No focal neurological deficits. Results & Data Results & Data Vital Signs (Past 12 Hours) Vital Signs Temp Pulse Resp BP Pulse Ox O2 Del Method 04/16/24 11:10 36.6 C 102 H 19 107/68 94 Room Air 04/16/24 07:13 36.8 C 107 H 20 119/75 92 Room Air 04/16/24 06:10 36.9 C 101 H 18 04/16/24 03:41 37.9 C H 98 H 18 133/77 93 Room Air Laboratory Results Reviewed CBC Reviewed BMP Reviewed stool culture and C. difficile toxin Reviewed blood cultures PG Care Time/CCT Total # of Minutes Spent Total Time Spent with Patient: Total time spent is greater than 50% in coordination of care (as documented) at patient's floor/unit and/or counseling patient: Coding Level of Care Code 85325 SUB INP/OBS CARE 3/50MIN Diagnoses Sepsis A41.9 Prostate cancer C61 NAM (acute kidney injury) N17.9 Hematuria R31.9 Hypertension I10
[2024-04-16 15:32] LABS: Adenovirus F 40/41 PCR Not Detected (NotDetected); Astrovirus PCR Not Detected (NotDetected); Campylobacter PCR Not Detected (NotDetected); Cryptosporidium PCR Not Detected (NotDetected); Cyclospora cayetanensis PCR Not Detected (NotDetected); Entamoeba histolytica PCR Not Detected (NotDetected); Enteroaggregative E.coli(EAEC) Not Detected (NotDetected); Enteropathogenic E.coli (EPEC) Not Detected (NotDetected); Enterotoxigenic E.coli (ETEC) Not Detected (NotDetected); Giardia lamblia PCR Not Detected (NotDetected); Norovirus GI/GII PCR Not Detected (NotDetected); Plesiomonas shigelloides PCR Not Detected (NotDetected); Rotavirus A PCR Not Detected (NotDetected); Salmonella PCR Not Detected (NotDetected); Sapovirus PCR Not Detected (NotDetected); Shiga-like Toxin E.coli (STEC) Not Detected (NotDetected); Shigella/Enteroinvasive E.coli Not Detected (NotDetected); Vibrio cholerae PCR Not Detected (NotDetected); Vibrio species PCR Not Detected (NotDetected); Yersinia enterocolitica PCR Not Detected (NotDetected)
[2024-04-17 06:26] LABS: Hematocrit (blood only) 35.1 % (42.0-52.0); Hemoglobin 12.1 g/dl (14.0-18.0); Mean Corpuscular Hemoglobin 29.7 pg (25.0-34.0); Mean Corpuscular Hgb Conc 34.5 g/dL (32.0-36.0); Mean Corpuscular Volume 86.2 fL (80.0-100.0); Mean Platelet Volume 12.3 fL (9.4-12.4); Platelet Count 104 K/uL (130-400); RDW Coefficient of Variation 13.5 % (11.5-14.5); RDW Standard Deviation 42.6 fL (36.4-46.3); Red Blood Count 4.07 M/uL (4.70-6.10)
[2024-04-17 06:32] LABS: BUN Creatinine Ratio 13.9 (10-20); Calcium 8.9 mg/dl (8.6-10.3); Creatinine Clr Calc Pharmacy 35.3 ml/min; Est GFR (African American) 36.5 ml/min; Est GFR (Non-African American) 31.5 ml/min; Potassium 3.7 mmol/L (3.5-5.1)
[2024-04-17 07:18] LABS: Basophils # (auto) 0.02 K/uL (0.00-0.20); Basophils % (auto) 0.5 %; Eosinophils # (auto) 0.13 K/uL (0.00-0.50); Eosinophils % (auto) 3.3 %; Immature Granulocytes # (auto) 0.07 K/uL (0.01-0.20); Immature Granulocytes % (auto) 1.8 %; Lymphocytes # (auto) 0.37 K/uL (1.20-3.40); Lymphocytes % (auto) 9.3 %; Monocytes # (auto) 0.32 K/uL (0.11-0.59); Neutrophils # (auto) 3.09 K/uL (1.40-6.50); Neutrophils % (auto) 77.1 %; RBC Morphology Unremarkable
--- NOTE | 2024-04-17 08:43 | Urology Progress Note ---
Date of Service April 17, 2024 Assessment & Plan (1) Prostate cancer: (2) Primary bladder malignant neoplasm: Plan 1. Prostate cancer Recent prostate biopsy shows low levels of Bethany 6 diseaseno drastic change from his initial biopsy in 2019 Reviewed his pathology with him today 2. Bladder cancer TURBT specimen shows P TA low-grade bladder cancer with a solitary focus I discussed the significance of the pathology and the anticipated course for long-term follow-up Will plan for cystoscopy in 3 months but he will see us in the office prior to that to review his continued recovery 3. Infection E. coliciprofloxacin resistant Okay to send him home on antibioticscover for 10 full days Admission and Anticipated Discharge Date Admission Date: April 14, 2024 Subjective Subjectively doing well today and is anxious to go home Very much as well suited for this from a standpoint Culture showing E. coli with fluoroquinolone resistance as expected Physical Exam Constitutional: well developed and well nourished Respiratory: no respiratory distress Cardiovascular: Extremities: no pedal edema Gastrointestinal (Abdomen): Inspection/Auscultation: abdomen normal to inspection Results & Data Vital Signs (Past 12 Hours) Vital Signs Temp Pulse Resp BP Pulse Ox O2 Del Method 04/17/24 07:56 36.8 C 90 18 128/50 L 93 Room Air 04/17/24 04:26 36.9 C 94 H 18 131/77 90 Room Air 04/17/24 00:02 36.0 C L 97 H 18 132/82 91 Room Air PG Care Time/CCT Total # of Minutes Spent Total Time Spent with Patient: Total time spent is greater than 50% in coordination of care (as documented) at patient's floor/unit and/or counseling patient: Coding Level of Care Code 70622 SUB INP/OBS CARE 2/35MIN Diagnoses Prostate cancer C61 Primary bladder malignant neoplasm C67.9
--- NOTE | 2024-04-17 15:05 | Discharge Summary ---
Discharge Summary Date of Service April 17, 2024 Principal Dx & Hospital Course #1 = Principal Diagnosis (1) Sepsis: Sepsis, suspect source, s/p TURBT 04/13 Hypotensive, febrile, with elevated lactate at 3.9 and procalcitonin 8.77 on presentation to ED. EKG on admission revealed sinus tachycardia without territorial ST segment changes. No chest pain. High sensitive troponin was normal. CXR on admission without acute findings, no evidence of edema. Fluid resuscitation completed to ABW goal completed with 750cc LR. CT A/P on admission suspicious for nonspecific proctitis. Recommend follow-up colonoscopy outpatient. Urine culture negative. Blood cultures positive for fluoroquinolone-resistant E. coli bacteremia. > Discharged on Augmentin x 7 days for a total of 10-day antibiotic course. Patient had been experiencing loose stools; stool cultures and C. difficile negative. Loose stools most likely due to antibiotic. Educated patient on taking probiotic or eating 1 cup of yogurt while on antibiotic upon discharge. (2) Prostate cancer: Bladder lesion/prostate cancer Bladder mass concerning for potential transitional cell carcinoma. Also has a history of prostate cancer Dawson 3+3 in 2018, TURBT was performed for confirmation biopsy of prostate cancer at the same time of bladder tumor sampling TURBT specimen from 04/13 shows P TA low-grade bladder cancer with a solitary focus. Urology plans for cystoscopy in 3 months but he will see them in the office prior to that to review his continued recovery (3) NAM (acute kidney injury): - Baseline Cr ~1.5, acutely elevated at 2.54 with volume contraction and sepsis on admission. Trend daily. No hyperkalemia or volume overload on admit. - Renally dose medications - NAM improving (4) Hematuria: Mild Acute Blood Loss anemia 2/2 bx bleeding - Hgb baseline ~15 --> 13.2 on admission - Hematuria improving on reassessment, voiding clear urine - No chest pain/syncope/presyncope - No indication for acute transfusion (5) Hypertension: Losartan held for hypotension. Can resume on discharge Plan Chronic Stable Issues: - Chronic pain: Meloxicam temporarily held, hydrocodone 13293 temporarily converted to oxycodone while admitted. Hold for narcosis - GERD: No longer on Protonix however we will continue Pepcid prophylaxis/GERD prophylaxis while inpatient. - Hyperlipidemia: Continue statin DVT: SCDs CODE STATUS: Full code Notes For Next Care Provider Patient presented with sepsis most likely from source, s/p TURBT on 04/13 Fluoroquinolone resistant bacteremia, treated with IV antibiotics inpatient and discharged on Augmentin Recommend outpatient colonoscopy due to CT A/P suspicious for nonspecific proctitis. Medication Changes From Visit Augmentin x 7 days for total of 10-day antibiotic course Admission HPI Per Admitting Provider Los is a 74-year-old male with past medical history of prostate cancer and bladder tumor s/p TURBT and bladder tumor biopsy 04/13/2024, hypertension, GERD, hyperlipidemia who presents to the ER post prostate TURBT with fever of 101.5 and hypotension. Patient is recommended for admission for suspected sepsis of origin. While in the ER BP 100/55, repeat 86/58. There is no leukocytosis. Lactate is elevated at 3.9. Magnesium is low at 1.5. No transaminitis. UA is infected appearing. Patient had been on ciprofloxacin postprocedure. +Fever and shaking chills 10am today. Took 3x 200mg ibuprofen for fever which seemed to help. Took cipro last night, this morning, and this afternoon. 'horrendous' burning with urination since lat night, seems a little bit better than last night but still very bothersome. Hematuria last night this morning with lizeth blood however this seems that it may be improving as his last void was relatively clear without blood. Did pass some small clots last night none with his last Has some suprapubic pain otherwise denies abdominal pain No chest pain, chest pressure, shortness of breath, dyspnea Denies history of heart failure does not take aspirin/antiplatelet/anticoagulant agents Medical History: Reviewed Medications: Reviewed Surgical History: Reviewed Family history: Reviewed Allergies: Reviewed Social History: Reviewed Code Status: Full code Admission Exam Per Admitting Provider General: A&Ox3. NAD. Cooperative. Appears nontoxic, pleasant, cooperative and conversational HEENT: Atraumatic, normocephalic. vision/hearing intact Pulm: CTAB A&P. -wheezes, -rales, -rhonchi. Symmetrical chest rise. No increased work of breathing. No respiratory distress. Cardiac: RRR, -mrg. Radial pulses intact and symmetrical. Abdominal:suprapubic ttp. No rebound/guarding. soft. BS present. Ext: warm, dry Discharge Exam General: No acute distress, nondiaphoretic, well-developed, well-nourished. Skin: The skin was without rashes, erythema, edema, or bruising. Cardiac: Regular rate and rhythm without murmurs gallops or rubs. Pulm: Clear to auscultation bilaterally without wheezes, rales or rhonchi. No respiratory distress. Abdominal: Positive bowel sounds x 4. Soft, nontender, without masses or organomegaly. No guarding or rebound tenderness. Neuro: A&O x3. No focal neurological deficits. Updated Medication List Medication Instructions Recorded Confirmed Type brimonidine 0.2 % eye drops 1 drp ophthalmic (eye) BID 01/11/22 04/14/24 History clonazepam 0.5 mg tablet 0.5 mg PO TID 01/11/22 04/14/24 History famotidine 40 mg tablet 40 mg PO QAM 01/11/22 04/14/24 History latanoprost 0.005 % eye drops 1 drp ophthalmic (eye) HS 01/11/22 04/14/24 History simvastatin 20 mg tablet 10 mg PO QAM 01/11/22 04/14/24 History losartan 100 1 tab PO QAM 03/30/24 04/14/24 History mg-hydrochlorothiazide 25 mg tablet amoxicillin 875 mg-potassium 1 tab PO BID 7 days #14 tabs 04/17/24 Rx clavulanate 125 mg tablet Hospital Stay Data Consultations 04/14/24 18:00 Consult Urology Stat ED Decision to Admit Stat Diagnostic Imagining Performed 04/14/24 17:33 CT abd pelvis wo con Stat Pending Results Patient Have Any Pending Studies at Discharge: No Discharge Instructions Given to Patient (Per Discharging Provider) Mr. Aguilar, Ramiro were admitted to the hospital due to sepsis, likely from a genitourinary () source. This was treated with IV antibiotics while you are in the hospital. You will be transition to oral antibiotics upon discharge. You had stool studies done while in the hospital because of the diarrhea you have been experiencing, however these were negative. Therefore, it is most likely that the diarrhea is from GI upset from the antibiotics. Upon discharge from the hospital: * Take Augmentin (oral antibiotic) twice daily for 7 days upon discharge from the hospital. It is important to take this antibiotic as prescribed and complete the course of it even if you feel better. * Follow-up with urology. You have an appointment scheduled for 04/28/2024 at 4 PM. * Continue your other home medications as prescribed. Please return to the hospital if you experience any of the following: Fever of 100.4 F or higher, chills, shaking, fast heartbeat and breathing, trouble breathing, severe nausea or uncontrolled vomiting, confusion, disorientation, drowsiness, dizziness, decreased urination, severe pain, or chest pain. It was a pleasure taking care of you while you were in the hospital, Vanda Mcclelland PA-C Total Time Total Time Spent Total Time Spent (In Minutes): Greater than 30 minutes spent completing this discharge process including direct patient care, medication reconciliation, documentation, review of labs and images, and coordination of care. Coding Level of Care Code 43004 INP/OBS DISCH >30 MIN Diagnoses Sepsis A41.9 Prostate cancer C61 NAM (acute kidney injury) N17.9 Hematuria R31.9 Hypertension I10
== END 2024-04-17 12:45 | disposition home or self-care (01) | DRG 862 ==
LOC: ED 15:43 → SUATTDRO 18:51 → EDINP 18:51 → 4W 21:12
DX: N39.0 Urinary tract infection, site not specified; K21.9 Gastro-esophageal reflux disease without esophagitis; G89.29 Other chronic pain; N17.9 Acute kidney failure, unspecified; Z79.899 Other long term (current) drug therapy; E78.5 Hyperlipidemia, unspecified; R31.0 Gross hematuria; T81.44XA Sepsis following a procedure, initial encounter; D62 Acute posthemorrhagic anemia; C67.9 Malignant neoplasm of bladder, unspecified; I10 Essential (primary) hypertension; A41.51 Sepsis due to Escherichia coli [E. coli]; C61 Malignant neoplasm of prostate